=== PATIENT | female | born 1975 | race American Indian/Alaskan Native ===

== ENCOUNTER 2021-07-22 12:00 | Emergency (ER) | payer OTHER ==
[2021-07-22] MEDS ORDERED: cloNIDine 0.1 MG TAB PO ONE (13:03)
--- NOTE | 2021-07-22 13:10 | Emergency Department Report ---
ED General Adult HPI - General Chief complaint: High BP Stated complaint: BLOOD PRESSURE HIGH Time Seen by Provider: 07/22/21 12:57 Source: patient Mode of arrival: Ambulatory Limitations: No Limitations - History of Present Illness Initial comments: Patient is 46 years old morbidly obese female with history of hypertension and diabetes and hyper lipidemia. Patient is noncompliant with her medication. Patient stated that the last time she took any medication was 3 years ago and the reason is that because she does not have insurance. Patient stated that she went to her primary care physician today for a routine visit and found to have significantly elevated blood pressure. Patient found to have a blood pressure of 234/142. Patient currently denying any symptoms specifically patient denied any headache, neck pain, chest pain, shortness of breath, abdominal pain, weakness numbness or tingling sensation. -: This morning - Related Data Allergies Allergy/AdvReac Type Severity Reaction Status Date / Time No Known Allergies Allergy Unverified 07/22/21 12:50 ED Review of Systems ROS: Stated complaint: BLOOD PRESSURE HIGH Other details as noted in HPI Comment: All other systems reviewed and negative Constitutional: denies: chills, fever Respiratory: denies: cough, shortness of breath, SOB with exertion Cardiovascular: denies: chest pain, palpitations Gastrointestinal: denies: abdominal pain, nausea Musculoskeletal: denies: back pain Neurological: denies: headache, weakness, numbness, paresthesias, confusion, abnormal gait ED Physical Exam - General Limitations: No Limitations General appearance: alert, in no apparent distress - Head Head exam: Present: atraumatic, normocephalic, normal inspection - Eye Eye exam: Present: normal appearance - ENT ENT exam: Present: normal exam, normal orophraynx, mucous membranes moist - Neck Neck exam: Present: normal inspection, full ROM. Absent: tenderness, meningismus - Respiratory Respiratory exam: Present: normal lung sounds bilaterally - Cardiovascular Cardiovascular Exam: Present: regular rate, normal rhythm, normal heart sounds - GI/Abdominal GI/Abdominal exam: Present: soft, normal bowel sounds. Absent: distended, tenderness, guarding, rebound, rigid, organomegaly, mass, bruit, pulsatile mass, hernia - Extremities Exam Extremities exam: Present: normal inspection, full ROM, normal capillary refill. Absent: tenderness, pedal edema, joint swelling, calf tenderness - Back Exam Back exam: Present: normal inspection, full ROM. Absent: CVA tenderness (R), CVA tenderness (L) - Neurological Exam Neurological exam: Present: alert, oriented X3, CN II-XII intact, normal gait, reflexes normal - Psychiatric Psychiatric exam: Present: normal mood - Skin Skin exam: Present: warm, intact, normal color ED Course Vital Signs 07/22/21 07/22/21 07/22/21 12:52 13:07 13:10 Temperature 98.3 F Pulse Rate 85 81 83 Respiratory 18 18 Rate Blood Pressure 216/117 217/116 Blood Pressure 215/141 [Right] O2 Sat by Pulse 99 98 Oximetry 07/22/21 07/22/21 07/22/21 13:15 13:31 13:45 Temperature Pulse Rate 78 80 79 Respiratory 21 22 19 Rate Blood Pressure 216/117 222/123 222/123 Blood Pressure [Right] O2 Sat by Pulse 99 100 100 Oximetry 07/22/21 07/22/21 07/22/21 14:01 14:19 14:31 Temperature Pulse Rate 83 77 81 Respiratory 19 18 Rate Blood Pressure 214/105 214/105 159/96 Blood Pressure [Right] O2 Sat by Pulse 100 100 Oximetry 07/22/21 14:45 Temperature Pulse Rate 82 Respiratory 21 Rate Blood Pressure 167/101 Blood Pressure [Right] O2 Sat by Pulse 97 Oximetry ED Medical Decision Making - Lab Data Result diagrams: 07/22/21 13:21 07/22/21 13:21 - Medical Decision Making Patient is 46 years old morbidly obese female with history of hypertension and diabetes and hyper lipidemia. Patient is noncompliant with her medication. Patient stated that the last time she took any medication was 3 years ago and the reason is that because she does not have insurance. Patient stated that she went to her primary care physician today for a routine visit and found to have significantly elevated blood pressure. Patient found to have a blood pressure of 234/142. Patient currently denying any symptoms specifically patient denied any headache, neck pain, chest pain, shortness of breath, abdominal pain, weakness numbness or tingling sensation. Patient received clonidine 0.2 mg. Patient stated that she is feeling much better her current blood pressure is 145/69. Labs reviewed and is unremarkable. Urine is negative for acute finding. Patient given prescription for Norvasc and hydrochlorothiazide and advised to follow-up with her primary care physician in the next 2 to 3 days and to return to the ER if she develop any new symptoms. Critical care attestation.: If time is entered above; I have spent that time in minutes in the direct care of this critically ill patient, excluding procedure time. ED Disposition Clinical Impression: Malignant hypertension Disposition: 01 HOME / SELF CARE / HOMELESS Is pt being admited?: No Condition: Stable Instructions: Hypertension (ED), Hypertension, Adult, [id number] Referrals: PRIMARY CARE, [Referring] - 3-5 Days
[2021-07-22 14:08] LABS: Basophils % (Auto) 0.5 % (0.0-1.8); Eosinophils # (Auto) 0.3 K/mm3 (0.0-0.4); Eosinophils % (Auto) 3.7 % (0.0-4.3); Hematocrit 41.3 % (30.3-42.9); Hemoglobin 13.4 gm/dl (10.1-14.3); Lymphocytes # (Auto) 2.8 K/mm3 (1.2-5.4); Lymphocytes % (Auto) 38.6 % (13.4-35.0); Mean Corpuscular HGB Conc 32 % (30-34); Mean Corpuscular Volume 82 fl (79-97); Monocytes # (Auto) 0.6 K/mm3 (0.0-0.8); Monocytes % (Auto) 8.5 % (0.0-7.3); Platelet Count 148 K/mm3 (140-440); Red Blood Count 5.02 M/mm3 (3.65-5.03); Red Cell Distribution Width 15.7 % (13.2-15.2)
[2021-07-22 14:36] LABS: BUN/Creatinine Ratio 20; Blood Urea Nitrogen 18 mg/dL (7-17); Calcium 8.8 mg/dL (8.4-10.2); Hemolysis Index 25
[2021-07-22 14:41] LABS: Alanine Aminotransferase 15 units/L (7-56); Albumin 3.7 g/dL (3.9-5)
[2021-07-22 14:41] LABS: Bilirubin,Urine NEG (Negative); Blood,Urine NEG (Negative); Color,Urine Straw (Yellow); Protein,Urine <15 mg/dL mg/dL (Negative); RBC,Urine < 1.0 /HPF (0.0-6.0); Urobilinogen,Urine < 2.0 mg/dL (<2.0); WBC,Urine < 1.0 /HPF (0.0-6.0)
[2021-07-22 15:19] LABS: Bilirubin,Direct < 0.2 mg/dL (0-0.2)
[2021-07-22 15:25] VITALS: BP 133/88
== END 2021-07-22 15:26 | disposition home or self-care (01) ==
LOC: ED 12:00
DX: I10 Essential (primary) hypertension (principal)
CPT/HCPCS: 36415; 80048; 80076; 81001; 85025; 99283